=== PATIENT | male | born 1925 | race Caucasian/White ===

== ENCOUNTER 2017-05-13 14:00 | Outpatient (RCR) ==
[2016-04-30 10:09] VITALS: BMI 23.7
--- NOTE | 2017-04-16 17:07 | RS.OTDNOTE ---
Subjective Date of Note: 04/16/17 Visit #: 7 Date of Evaluation: 03/31/17 Payer Source: MEDICARE Date of Onset/Injury/Change in Status: 03/17/17 Surgery Performed?: No Treatment Diagnosis: Left Rotator cuff tear, contusion to Left shoulder Treatment Side (optional): Left *Precautions: AT risk for falls. Prior Level of Function.....Patient was independent with: ADL's, Self Care, Work /Vocation, Caregiving, Ambulation/Mobility, Community Integration/Access History of Condition/Mechanism of Injury: Pt reported that he was in the kitchen and had cooked some pasta. Pt had picked up the boiling fuentes of hot water and cooked pasta and was trying to turn when he fell into the refrigerator and the grainer machine. Pt had difficulty getting up out of the floor. Level of Function: Pt is limited in LUE AROM, and strength. Functional Limitations: Sleep, Self Care, ADL's, Reaching, Pushing, Pulling, Lifting, Carrying Current Complaints/Gains: Painful to reach with LUE. Pt reports it is better. Pain Assessment - Pain Description Pain Description: Aching Pain Location: LUE shoulder, posterior deltoid Pain Description: aches, sharp when he reaches Current Pain Intensity: 0 at rest. Modalities - Treatment Modality: Electrical Stim Unattended Parameters/Method Applied: 100 on ch1 and ch2 115, High Volt. Treatment Area: LUE anterior deltoid with crossed over X Patient Position: Supine Comments:: Pt completing AROM and exercises with E-stim to decrease patient's pain. - Hot Pack/Cryotherapy Treatment: Cryotherapy Interventions - Exercise/Activities Exercise/Activities/Manual Therapy: Isometric exercises, 10/2 with hold x 5 secs. Extended PROM to A/AROM L UE in supine position. 1# say bar 10/2, shoulder flexion/abduction/extension Pt tolerated 10 minutes of the overhead pulleys. Ball flexion with BUE x 10 reps. Mass nutrition services manager 8# and 10# x 20 reps in BUE. HOME EXERCISE PROGRAM: Written document of Isometric exercises. - Objective Findings Objective Findings:: Pt has limited AROM of LUE and weakness. - Charges Total Direct Minutes: 49 Total Treatment Time: 60 Procedures billed for this date of service:: EX x 2, Estim, CP Assessment Assessment: Pt is improving in strength and his overall pain is decreasing. Pt is now able to tie his shoes. Pt is able to button his shirt. Problems/Comments: Pain with reaching with LUE. Patient demonstrates compliance with HEP?: Yes Short Term Goals Goal #1: Pt to increase LUE shoulder abduction to 75 deg. Goal to be met by: 04/14/17 Progress towards goal: Progressing Goal #2: Pt to be independent with Home exercises. Goal to be met by: 04/14/17 Progress towards goal: Partially Met Goal #3: Pt to increase LUE shoulder flexion to 70 deg. Goal to be met by: 04/14/17 Progress towards goal: Partially Met Goal #4: Pt to increase his strength to 3-/5 in LUE. Goal to be met by: 04/14/17 Progress towards goal: Partially Met Nursing Home Goals Goal #1: Pt to increase LUE shoulder abduction to 90 deg. Goal to be met by: 04/28/17 Progress towards goal: Progressing Goal #2: Pt to increase independence of self care management to Independent. Goal to be met by: 04/28/17 Progress towards goal: Progressing Goal #3: Pt to increase LUE shoulder flexion to 90 deg. Goal to be met by: 04/28/17 Progress towards goal: Progressing Goal #4: Pt to increase his strength to 4/5/5 in LUE. Goal to be met by: 04/28/17 Progress towards goal: Progressing Plan PLAN OF CARE EXPIRES ON:: 04/24/17 ORDER # VISITS AND/OR THROUGH DATE: 3x wk x 3 weeks PLAN: Continue Plan of Care Frequency: 2 X week Duration: 1 week
--- NOTE | 2017-04-17 10:08 | RS.OPPTDN ---
Subjective Date of Note: 04/16/17 Visit #: 5 Date of Evaluation: 04/03/17 Payer Source: MEDICARE Treatment Diagnosis: fall and gait difficulty Current Subjective/complaints:: pt states he can tell he is getting stronger. *Precautions: AT risk for falls. Pain Assessment - Pain Description Pain Location: L shld Current Pain Intensity: 0 at rest Balance System Training - Balance Training Comments pt with improved dyn stand balance with no LOB with amb in dept without cane. Interventions - Exercise/Activities/Manual Therapy Exercises/Activities: pt received stretching to B heel cords as well as hamstrings, pt rode bike x 8 mins pt performed QS, SAQ, hip flex in hook lying with 1 1/2#, hip abd in hook lying with red tband, ball squeezes x 2 sets of 10 reps, pt also performed forward lunges x 10 reps with CGA Total minutes of Exercise: 40 Manual Therapy: n/a Total minutes of Manual Therapy: n/a HOME EXERCISE PROGRAM: pt reports he has been compliant with HEP 2x a day - Charges Total Direct Minutes: 40 Total Treatment Time: 40 Procedures billed for this date of service:: ex3 Assessment: pt is progressing with strength and balance, gait safety has improved as noted by gait in/out of dept. Patient Education: Home Exercise Program, Activity Modification, Education of Plan of Care Patient demonstrates compliance with HEP?: Yes Short Term Goals Goal #1: transfer sup to/from sit independently Goal to be met by: 04/17/17 Progress towards Goal:: Met Goal #2: pt demonstrate improved dyn stand balance with tinetti score 19/28 Goal to be met by: 04/17/17 Progress towards Goal:: Progressing Goal #3: pt amb with cane in dept with improved heel strike and posture with no LOB Goal to be met by: 04/17/17 Progress towards Goal:: Met [facility] Goals Goal #1: pt with improved strength BLE 4 to 4+/5 Goal to be met by: 05/08/17 Progress towards goal: Progressing Goal #2: pt independent with HEP to maintain functional gains after dc Goal to be met by: 05/08/17 Progress towards goal: Progressing Goal #3: pt with improved dyn stand balance as noted by tinetti score of 22/28 Goal to be met by: 05/08/17 Progress towards goal: Progressing Goal #4: pt amb commuity distances with cane with no LOB and improved posture. Goal to be met by: 05/08/17 Progress towards goal: Progressing Plan PLAN OF CARE EXPIRES ON:: 05/08/17 ORDER # VISITS AND/OR THROUGH DATE: 05/08/17 PLAN: Continue Plan of Care
--- NOTE | 2017-04-21 15:17 | RS.OPPTDN ---
Subjective Date of Note: 04/21/17 Visit #: 6 Date of Evaluation: 04/03/17 Payer Source: MEDICARE Treatment Diagnosis: fall and gait difficulty Current Subjective/complaints:: Patient says he is doing well. He denies any LOB or falls. *Precautions: AT risk for falls. Pain Assessment - Pain Description Pain Location: L shld Current Pain Intensity: 0 at rest Interventions - Exercise/Activities/Manual Therapy Exercises/Activities: pt received stretching to B heel cords as well as hamstrings, pt rode bike x 8 mins pt performed QS, SAQ, hip flex in hook lying with 1 1/2#, hip abd in hook lying with red tband, ball squeezes x 2 sets of 10 reps, pt also performed forward lunges x 10 reps with CGA Total minutes of Exercise: 38 Manual Therapy: n/a HOME EXERCISE PROGRAM: pt reports he has been compliant with HEP 2x a day - Charges Total Direct Minutes: 38 Total Treatment Time: 38 Procedures billed for this date of service:: ex3 Assessment: Patient progressing well with all therex and performing HEP. Currently maintains good bal with amb without cane short distances. Utilizes SC in hallway and community distances without dizziness or LOB. Maintains no falls at this point. Patient Education: Education of diagnosis, Home Exercise Program Patient demonstrates compliance with HEP?: Yes Short Term Goals Goal #1: transfer sup to/from sit independently Goal to be met by: 04/17/17 Progress towards Goal:: Met Goal #2: pt demonstrate improved dyn stand balance with tinetti score 19/28 Goal to be met by: 04/17/17 Progress towards Goal:: Progressing Goal #3: pt amb with cane in dept with improved heel strike and posture with no LOB Goal to be met by: 04/17/17 Progress towards Goal:: Met [facility] Goals Goal #1: pt with improved strength BLE 4 to 4+/5 Goal to be met by: 05/08/17 Progress towards goal: Progressing Goal #2: pt independent with HEP to maintain functional gains after dc Goal to be met by: 05/08/17 Progress towards goal: Progressing Goal #3: pt with improved dyn stand balance as noted by tinetti score of 22/28 Goal to be met by: 05/08/17 Progress towards goal: Progressing Goal #4: pt amb commuity distances with cane with no LOB and improved posture. Goal to be met by: 05/08/17 Progress towards goal: Progressing Plan PLAN OF CARE EXPIRES ON:: 05/08/17 ORDER # VISITS AND/OR THROUGH DATE: 05/08/17 PLAN: Continue to progress trunk and LE strengthening to improve bal and HS flexibility.
--- NOTE | 2017-04-22 14:17 | RS.OTDNOTE ---
Subjective Date of Note: 04/21/17 Visit #: 8 Date of Evaluation: 03/31/17 Payer Source: MEDICARE Date of Onset/Injury/Change in Status: 03/17/17 Surgery Performed?: No Treatment Diagnosis: Left Rotator cuff tear, contusion to Left shoulder Treatment Side (optional): Left *Precautions: AT risk for falls. Prior Level of Function.....Patient was independent with: ADL's, Self Care, Work /Vocation, Caregiving, Ambulation/Mobility, Community Integration/Access History of Condition/Mechanism of Injury: Pt reported that he was in the kitchen and had cooked some pasta. Pt had picked up the boiling fuentes of hot water and cooked pasta and was trying to turn when he fell into the refrigerator and the track template maker. Pt had difficulty getting up out of the floor. Level of Function: Pt is limited in LUE AROM, and strength. Functional Limitations: Sleep, Self Care, ADL's, Reaching, Pushing, Pulling, Lifting, Carrying Current Complaints/Gains: Pt states he is able to do more things now and is pleased with progress of UE. Pt and son states pt returns to [facility] on Thursday and are hoping to continue with therapy. Pain Assessment - Pain Description Pain Description: Tightness, Dull, Aching Pain Location: LUE shoulder, posterior deltoid Pain Description: aches, sharp when he reaches Current Pain Intensity: 1 Worst Pain Intensity: 5 Modalities - Treatment Modality: Electrical Stim Attended Parameters/Method Applied: Hi-volt to pt tolerance during PROM-A/AROM Treatment Area: shoulder Patient Position: Supine - Hot Pack/Cryotherapy Treatment: Cryotherapy (CP x 20 mins) Interventions - Exercise/Activities Exercise/Activities/Manual Therapy: Isometric exercises, 10/2 with hold x 5 secs. Extended PROM to A/AROM L UE in supine position. 1# say bar 10/2, shoulder flexion/abduction/extension. Hold-relax and AROM performed with 45* angle from 120-150*. Pt tolerated 3+ minutes of the overhead pulleys. Ball flexion with BUE x 10 reps. Mass storm sash maker 8# and 10# x 20 reps in BUE. HOME EXERCISE PROGRAM: Written document of Isometric exercises. - Objective Findings Objective Findings:: Pt has limited AROM of LUE and weakness. - Charges Total Direct Minutes: 58 Total Treatment Time: 58 Procedures billed for this date of service:: CP EX2 ESTIM Assessment Patient Education: Education of diagnosis, Body/Joint mechanics, Home Exercise Program, Home Safety, Activity Modification, Education of Plan of Care Patient demonstrates compliance with HEP?: Yes Short Term Goals Goal #1: Pt to increase LUE shoulder abduction to 75 deg. Goal to be met by: 04/14/17 Progress towards goal: Progressing Comments: PROM Goal #2: Pt to be independent with Home exercises. Goal to be met by: 04/14/17 Progress towards goal: Met Comments: Shimon and isometric Goal #3: Pt to increase LUE shoulder flexion to 70 deg. Goal to be met by: 04/14/17 Progress towards goal: Met Goal #4: Pt to increase his strength to 3-/5 in LUE. Goal to be met by: 04/14/17 Progress towards goal: Partially Met Associate Professor Of Chemistry Goals Goal #1: Pt to increase LUE shoulder abduction to 90 deg. Goal to be met by: 04/28/17 Progress towards goal: Progressing Goal #2: Pt to increase independence of self care management to Independent. Goal to be met by: 04/28/17 Progress towards goal: Progressing Goal #3: Pt to increase LUE shoulder flexion to 90 deg. Goal to be met by: 04/28/17 Progress towards goal: Progressing Goal #4: Pt to increase his strength to 4/5/5 in LUE. Goal to be met by: 04/28/17 Progress towards goal: Progressing Plan PLAN OF CARE EXPIRES ON:: 04/28/17 ORDER # VISITS AND/OR THROUGH DATE: 3x wk x 3 weeks PLAN: Pt to be seen x 1 add'l tx this wk. Pt returns to 04/27/17 Frequency: one tx left Duration: 1 week
--- NOTE | 2017-04-24 08:53 | RS.OPPTDN ---
Subjective Date of Note: 04/23/17 Visit #: 7 Date of Evaluation: 04/03/17 Payer Source: MEDICARE Treatment Diagnosis: fall and gait difficulty Current Subjective/complaints:: Patient says he is doing well. He reports some stiffness to the hips, but admits he is feeling increased strength to his legs and denies having any falls or stumbling. *Precautions: AT risk for falls. Pain Assessment - Pain Description Pain Location: L shld Current Pain Intensity: 0 at rest Interventions - Exercise/Activities/Manual Therapy Exercises/Activities: pt received stretching to B heel cords as well as hamstrings, lower trunk rotation (short range). pt performed QS, SAQ 3# ea, hip flex in hook lying with 1 1/2#, hip abd in hook lying with red tband, ball squeezes x 2 sets of 10 reps, bridging. Patient stands at railing for hip abd, side stepping, heel raises, minisquats x 10 reps. Total minutes of Exercise: 38 Manual Therapy: n/a HOME EXERCISE PROGRAM: pt reports he has been compliant with HEP 2x a day - Charges Total Direct Minutes: 38 Total Treatment Time: 38 Procedures billed for this date of service:: ex3 Assessment: Patient has had no falls, maintains no LOB in the department. He ambulates short distances and in home independently. He requires short amount of time when transferring from sit to stand and ambulation so that he may avoid any possible dizziness. Discussed him returning to his MD on Thursday, April 27 and then attending his final PT session with reassessing Tinetti test. Patient Education: Home Exercise Program, Home Safety Patient demonstrates compliance with HEP?: Yes Short Term Goals Goal #1: transfer sup to/from sit independently Goal to be met by: 04/17/17 Progress towards Goal:: Met Goal #2: pt demonstrate improved dyn stand balance with tinetti score 19/28 Goal to be met by: 04/17/17 Progress towards Goal:: Progressing Comments:: assess next session Goal #3: pt amb with cane in dept with improved heel strike and posture with no LOB Goal to be met by: 04/17/17 Progress towards Goal:: Met Director Call Goals Goal #1: pt with improved strength BLE 4 to 4+/5 Goal to be met by: 05/08/17 Progress towards goal: Progressing Goal #2: pt independent with HEP to maintain functional gains after dc Goal to be met by: 05/08/17 Progress towards goal: Progressing Goal #3: pt with improved dyn stand balance as noted by tinetti score of Goal to be met by: 05/08/17 Progress towards goal: Progressing Goal #4: pt amb commuity distances with cane with no LOB and improved posture. Goal to be met by: 05/08/17 Progress towards goal: Progressing Plan PLAN OF CARE EXPIRES ON:: 05/08/17 ORDER # VISITS AND/OR THROUGH DATE: 05/08/17 PLAN: Progress to one more session next week based on order. We will reassess Tinetti and Bal score.
--- NOTE | 2017-04-27 15:36 | RS.OPPTDN ---
Subjective Date of Note: 04/27/17 Visit #: 8 Date of Evaluation: 04/03/17 Payer Source: MEDICARE Treatment Diagnosis: fall and gait difficulty Current Subjective/complaints:: Patient says he is performing all HEP without difficulty. He says his legs are stronger and feels he has improved. 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 He says he does have an order to continue for his L shoulder, but no follow up scheduled with Dr. Lund for LE's. *Precautions: AT risk for falls. Pain Assessment - Pain Description Pain Location: L shld Current Pain Intensity: 0 at rest Interventions - Exercise/Activities/Manual Therapy Exercises/Activities: pt received stretching to B heel cords as well as hamstrings, lower trunk rotation (short range). pt performed QS, SAQ increased to 4# ea, hip flex in hook lying with 3#, hip abd in hook lying with green tband , ball squeezes x 2 sets of 10 reps, bridging. DF with blue tband, all 2x10. Tinetti's Assessment performed to compare to eval. Total minutes of Exercise: 43 Manual Therapy: n/a HOME EXERCISE PROGRAM: pt reports he has been compliant with HEP 2x a day - Objective Findings Observations,measurements,etc.: Tinetti: (Eval was ) - Charges Total Direct Minutes: 43 Total Treatment Time: 43 Procedures billed for this date of service:: ex3 Assessment: Patient has progressed with increased strength to the LE's and bal. He demo improved Tinetti's primarily with standing bal, performing continuous and steady steps 360 degrees and resisted nudging. He shows deficit mostly related to having an AD (he does not rely on it at home, only community distances). Patient Education: Body/Joint mechanics, Home Exercise Program, Home Safety Patient demonstrates compliance with HEP?: Yes Short Term Goals Goal #1: transfer sup to/from sit independently Goal to be met by: 04/17/17 Progress towards Goal:: Met Goal #2: pt demonstrate improved dyn stand balance with tinetti score Goal to be met by: 04/17/17 Progress towards Goal:: Met Comments:: Goal #3: pt amb with cane in dept with improved heel strike and posture with no LOB Goal to be met by: 04/17/17 Progress towards Goal:: Met Nursing Home Goals Goal #1: pt with improved strength BLE 4 to 4+/5 Goal to be met by: 05/08/17 Progress towards goal: Met Goal #2: pt independent with HEP to maintain functional gains after dc Goal to be met by: 05/08/17 Progress towards goal: Met Goal #3: pt with improved dyn stand balance as noted by tinetti score of Goal to be met by: 05/08/17 Progress towards goal: Progressing Comments: Goal #4: pt amb commuity distances with cane with no LOB and improved posture. Goal to be met by: 05/08/17 Progress towards goal: Met Comments: currently no LOB or falls. Plan PLAN OF CARE EXPIRES ON:: 05/08/17 ORDER # VISITS AND/OR THROUGH DATE: 05/08/17 PLAN: Patient has completed POC, met nearly all goals, and independent with HEP. He has no scheduled follow up with MD, but feels he is able to discontinue PT. Plan for Discharge.
--- NOTE | 2017-04-28 08:19 | RS.OTDNOTE ---
Subjective Date of Note: 04/23/17 Visit #: 9 Date of Evaluation: 03/31/17 Payer Source: MEDICARE Date of Onset/Injury/Change in Status: 03/17/17 Surgery Performed?: No Treatment Diagnosis: Left Rotator cuff tear, contusion to Left shoulder Treatment Side (optional): Left *Precautions: AT risk for falls. Prior Level of Function.....Patient was independent with: ADL's, Self Care, Work /Vocation, Caregiving, Ambulation/Mobility, Community Integration/Access History of Condition/Mechanism of Injury: Pt reported that he was in the kitchen and had cooked some pasta. Pt had picked up the boiling fuentes of hot water and cooked pasta and was trying to turn when he fell into the refrigerator and the habilitation assistant. Pt had difficulty getting up out of the floor. Level of Function: Pt is limited in LUE AROM, and strength. Functional Limitations: Sleep, Self Care, ADL's, Reaching, Pushing, Pulling, Lifting, Carrying Current Complaints/Gains: Pt continues stating he is making progress and able to do more, tie shoes and addison/doff shirts with less pain. Pain Assessment - Pain Description Pain Description: Tightness, Dull, Aching Pain Location: LUE shoulder, posterior deltoid Pain Description: aches, sharp when he reaches Current Pain Intensity: 0-1 Worst Pain Intensity: 5-6 Modalities - Treatment Modality: Ultrasound Parameters/Method Applied: 1.5w/cm2 x 10 mins Treatment Area: anterior/posterior shoulder Patient Position: Sitting - Hot Pack/Cryotherapy Treatment: Cryotherapy (following TE x 10+ mins) Interventions - Exercise/Activities Exercise/Activities/Manual Therapy: Isometric exercises, 10/2 with hold x 5 secs. Extended PROM to A/AROM L UE in supine position. 1# say bar 10/2, shoulder flexion/abduction/extension. Hold-relax and AROM performed with 45* angle from 120-150*. Pt tolerated 3+ minutes of the overhead pulleys. Ball flexion with BUE x 10 reps. Mass division commander 8# and 10# x 20 reps in BUE. HOME EXERCISE PROGRAM: Written document of Isometric exercises. - Objective Findings Objective Findings:: Pt has limited AROM of LUE and weakness. - Charges Total Direct Minutes: 48 Total Treatment Time: 58 Procedures billed for this date of service:: CP US EX2 Assessment Patient Education: Education of diagnosis, Body/Joint mechanics, Home Exercise Program, Home Safety, Activity Modification, Education of Plan of Care Patient demonstrates compliance with HEP?: Yes Short Term Goals Goal #1: Pt to increase LUE shoulder abduction to 75 deg. Goal to be met by: 04/14/17 Progress towards goal: Progressing Goal #2: Pt to be independent with Home exercises. Goal to be met by: 04/14/17 Progress towards goal: Met Comments: written instructions Goal #3: Pt to increase LUE shoulder flexion to 70 deg. Goal to be met by: 04/14/17 Progress towards goal: Met Goal #4: Pt to increase his strength to 3-/5 in LUE. Goal to be met by: 04/14/17 Progress towards goal: Partially Met Hat Cutter Goals Goal #1: Pt to increase LUE shoulder abduction to 90 deg. Goal to be met by: 04/28/17 Progress towards goal: Progressing Goal #2: Pt to increase independence of self care management to Independent. Goal to be met by: 04/28/17 Progress towards goal: Progressing Goal #3: Pt to increase LUE shoulder flexion to 90 deg. Goal to be met by: 04/28/17 Progress towards goal: Progressing Goal #4: Pt to increase his strength to 4/5/5 in LUE. Goal to be met by: 04/28/17 Progress towards goal: Progressing Plan PLAN OF CARE EXPIRES ON:: 04/28/17 ORDER # VISITS AND/OR THROUGH DATE: 04/28/17 PLAN: Pt returns to MD for follow-up appointment on Thursday04/27/17. Pt and son instructed for cont orders from MD if pt is to cont with current OT POC. Pt cont to demo slow steady progress with ROM and pain level during all ADL activity. OTR to re-assess pt for 10th visit/cont of orders if pt to continue OT tx. Frequency: Awaiting MD orders Duration: Awaiting MD orders
--- NOTE | 2017-04-30 16:33 | RS.OTPN ---
Subjective Date of Note: 04/30/17 Visit #: 10 Date of Evaluation: 03/31/17 Payer Source: MEDICARE Date of Onset/Injury/Change in Status: 03/17/17 Surgery Performed?: No Treatment Diagnosis: Left Rotator cuff tear, contusion to Left shoulder Treatment Side (optional): Left *Precautions: AT risk for falls. Prior Level of Function.....Patient was independent with: ADL's, Self Care, Work /Vocation, Caregiving, Ambulation/Mobility, Community Integration/Access History of Condition/Mechanism of Injury: Pt reported that he was in the kitchen and had cooked some pasta. Pt had picked up the boiling fuentes of hot water and cooked pasta and was trying to turn when he fell into the refrigerator and the manager consumer. Pt had difficulty getting up out of the floor. Level of Function: Pt is limited in LUE AROM, and strength. Functional Limitations: Sleep, Self Care, ADL's, Reaching, Pushing, Pulling, Lifting, Carrying Current Complaints/Gains: Pt complains of pain with LUE shoulder flexion, LUE chest pushouts, and LUE shoulder abduction. Pt has gained functional use of the LUE since initial evaluation. Pt can tie his shoes, put on his clothes, button his shirts, drive his car. Pain Assessment - Pain Description Pain Description: Tightness, Dull, Aching Pain Location: LUE shoulder, posterior deltoid Pain Description: aches, sharp when he reaches Current Pain Intensity: 0 Worst Pain Intensity: 6 Other comments regarding pain:: complains of pain with LUE shoulder flexion, abduction, and pushout. Functional Outcome Measures UE Functional Index: 30 - G Codes & Severity Modifier G Codes: Initial G code was CL. Current G code has improved to CJ. Goal is CI Source of G Code score: Carry, Moving, and handling. Observation - Observation Posture: Forward Head Handedness: Right Shoulder ROM: Right WFL's Shoulder Muscle Strength: Right WFL's - Left Shoulder ROM Left Shoulder Flexion: 45 (supine position) Left Shoulder Extension: 60 (sitting) Left Shoulder Abduction: 55 (standing) Left Shoulder Horizontal Abduction: 10 (supine) Left Shoulder Internal Rotation: 30 Left Shoulder External Rotation: 25 Left Shoulder ROM Limitations: Muscle Weakness, Pain - Left Shoulder Strength Left Shoulder Flexion: 3- Fair- Left Shoulder Extension: 4 Good Left Shoulder Abduction: 3- Fair- Left Shoulder Adduction: 3+ Fair+ Left Shoulder External Rotation: 2+ Poor+ Left Shoulder Internal Rotation: 3+ Fair+ - Right Shoulder Strength Right Shoulder Flexion: 4 Good Right Shoulder Extension: 4 Good Right Shoulder Abduction: 4 Good Right Shoulder Adduction: 4 Good Right Shoulder External Rotation: 4 Good Right Shoulder Internal Rotation: 4 Good - Special Tests Shoulder Drop Arm Test: Positive Left Elbow ROM: Bilaterally WFL's Elbow Muscle Strength: Bilaterally WFL's - Left Elbow Strength Left Elbow Extension: 4- Good- Left Elbow Flexion: 4- Good- Left Forearm Pronation: 4- Good- Left Forearm Supination: 4- Good- - Right Elbow Strength Right Elbow Extension: 4+ Good + Right Elbow Flexion: 4+ Good + Right Forearm Pronation: 4+ Good + Right Forearm Supination: 4+ Good + Wrist ROM: Bilaterally WFL's Wrist Muscle Strength: Bilaterally WFL's - Pre Billing Specialist Strength Left Pre Billing Specialist Strength: 59 Right Pre Billing Specialist Strength: 61 Palpation Palpation Findings: Tenderness Sensation Right Upper Extremity: Intact/Normal Right Lower Extremity: Intact/Normal Modalities - Treatment Modality: Electrical Stim Unattended Parameters/Method Applied: high volt to decrease pain. Treatment Area: Left shoulder Patient Position: Supine - Hot Pack/Cryotherapy Treatment: Hot Pack, Cryotherapy Interventions - Exercise/Activities Exercise/Activities/Manual Therapy: Isometric exercises, 10/2 with hold x 5 secs. Extended PROM to A/AROM L UE in supine position. 1# say bar 10/2, shoulder flexion/abduction/extension. Hold-relax and AROM performed with 45* angle from 120-150*. Pt tolerated 3+ minutes of the overhead pulleys. Ball flexion with BUE x 10 reps. HOME EXERCISE PROGRAM: Written document of Isometric exercises. - Objective Findings Objective Findings:: Pt has limited AROM of LUE and weakness. - Charges Total Direct Minutes: 20 Total Treatment Time: 20 Procedures billed for this date of service:: Exercises x 1 Assessment Assessment: Pt has made good progress toward his OT goals. Pt has decreased his impairment more than 50%. Pt continues with weakness, limited AROM of LUE, and decreased function of LUE. Patient Education: Education of diagnosis, Home Exercise Program, Education of Plan of Care Rehab Potential: Good Problems/Comments: decreased LUE shoulder flexion, abduction, and reaching. Short Term Goals Goal #1: Pt to increase LUE shoulder abduction to 75 deg. Goal to be met by: 05/14/17 Progress towards goal: Progressing Goal #2: Pt to increase Ext. Rot. to 60 deg. Goal to be met by: 05/14/17 Goal #3: Pt to increase LUE shoulder flexion to 100 deg. Goal to be met by: 05/14/17 Progress towards goal: Met Goal #4: Pt to increase his strength to 3-/5 in LUE. Goal to be met by: 05/14/17 Progress towards goal: Partially Met Shelter Goals Goal #1: Pt to increase LUE shoulder abduction to 90 deg. Goal to be met by: 06/18/17 Progress towards goal: Progressing Goal #2: Pt to increase independence of self care management to Independent. Goal to be met by: 06/18/17 Progress towards goal: Progressing Goal #3: Pt to increase LUE shoulder flexion to 90 deg. Goal to be met by: 06/18/17 Progress towards goal: Progressing Goal #4: Pt to increase his strength to 4/5 in LUE. Goal to be met by: 06/18/17 Progress towards goal: Progressing Plan PLAN OF CARE EXPIRES ON:: 06/18/17 ORDER # VISITS AND/OR THROUGH DATE: 06/18/17 PLAN: OT to provide Estim with Progressive Resistive Exercises to increase strength and decrease pain of LUE. OT to provide PROM, AAROM, and AROM to LUE. Frequency: 2 X week Duration: 6 weeks
--- NOTE | 2017-05-01 10:48 | RS.OTDNOTE ---
Subjective Date of Note: 04/30/17 Visit #: 10 Date of Evaluation: 03/31/17 Payer Source: MEDICARE Date of Onset/Injury/Change in Status: 03/17/17 Surgery Performed?: No Treatment Diagnosis: Left Rotator cuff tear, contusion to Left shoulder Treatment Side (optional): Left *Precautions: AT risk for falls. Prior Level of Function.....Patient was independent with: ADL's, Self Care, Work /Vocation, Caregiving, Ambulation/Mobility, Community Integration/Access History of Condition/Mechanism of Injury: Pt reported that he was in the kitchen and had cooked some pasta. Pt had picked up the boiling fuentes of hot water and cooked pasta and was trying to turn when he fell into the refrigerator and the environmental adviser. Pt had difficulty getting up out of the floor. Level of Function: Pt is limited in LUE AROM, and strength. Functional Limitations: Sleep, Self Care, ADL's, Reaching, Pushing, Pulling, Lifting, Carrying Current Complaints/Gains: Pt pleased with progress and is happy to continue with UE therapy. Pt states good compliance with performing HEP. Pain Assessment - Pain Description Pain Description: Tightness, Dull, Aching Pain Location: LUE shoulder, posterior deltoid Pain Description: aches, sharp when he reaches Current Pain Intensity: 0-1 Worst Pain Intensity: 4-5 Modalities - Treatment Modality: Electrical Stim Unattended Parameters/Method Applied: Hi-volt to pt tolerance with HP applied and PROM-A/ AROM in supine position x 30 mins. Treatment Area: cross current shoulder Patient Position: Supine - Hot Pack/Cryotherapy Treatment: Hot Pack, Cryotherapy Comments:: HP x 30 mins during estim application. CP x 10 mins following tx Interventions - Exercise/Activities Exercise/Activities/Manual Therapy: Isometric exercises, 10/2 with hold x 5 secs. Extended PROM to A/AROM L UE in supine position. 1# say bar 10/2, shoulder flexion/abduction/extension. Hold-relax and AROM performed with 45* angle from 120-150*. Pt tolerated 3+ minutes of the overhead pulleys. Ball flexion with BUE x 10 reps. HOME EXERCISE PROGRAM: Written document of Isometric exercises. - Objective Findings Objective Findings:: Pt has limited AROM of LUE and weakness. - Charges Total Direct Minutes: 60 Total Treatment Time: 75 Procedures billed for this date of service:: HP ESTIM EX2 Assessment Patient Education: Education of diagnosis, Body/Joint mechanics, Home Exercise Program, Home Safety, Activity Modification, Education of Plan of Care Patient demonstrates compliance with HEP?: Yes Short Term Goals Goal #1: Pt to increase LUE shoulder abduction to 75 deg. Goal to be met by: 04/14/17 Progress towards goal: Progressing Goal #2: Pt to be independent with Home exercises. Goal to be met by: 04/14/17 Progress towards goal: Met Goal #3: Pt to increase LUE shoulder flexion to 70 deg. Goal to be met by: 04/14/17 Progress towards goal: Met Goal #4: Pt to increase his strength to 3-/5 in LUE. Goal to be met by: 04/14/17 Progress towards goal: Partially Met Snf Goals Goal #1: Pt to increase LUE shoulder abduction to 90 deg. Goal to be met by: 04/28/17 Progress towards goal: Progressing Goal #2: Pt to increase independence of self care management to Independent. Goal to be met by: 04/28/17 Progress towards goal: Progressing Goal #3: Pt to increase LUE shoulder flexion to 90 deg. Goal to be met by: 04/28/17 Progress towards goal: Progressing Goal #4: Pt to increase his strength to 4/5/5 in LUE. Goal to be met by: 04/28/17 Progress towards goal: Progressing Plan PLAN OF CARE EXPIRES ON:: 04/28/17 ORDER # VISITS AND/OR THROUGH DATE: 04/28/17 PLAN: OTR here for 10th visit assessment. Pt demo progress and continuation orders for skilled OT. OTR upgrading goals and medicare dates. Frequency: 2 X week Duration: 4 weeks
--- NOTE | 2017-05-01 16:00 | RS.OPPTDC ---
Date of Discharge: 04/27/17 Date of Evaluation: 04/03/17 Number of Visits: 8 Treatment Diagnosis: fall and gait difficulty Current Level of Function: pt with increased hamstring length BLE. Tinetti score improved by 4 points pt improved with LE strength 4- to 4+/5 Current Complaints/Gains: pt denies falls or LOB since beginning PT. pt states he has had improved strength, flexibility in hips and knees. pt only uses cane for community distances. pt is compliant with HEP Functional Outcome Measure Tinetti: 20 - G Codes & Severity Modifier G Codes & Modifier: mobility dc CJ. mobility goal CI Source of G Code score: tinetti balance scale General Range of Motion: WFL's except for L shld Muscle Strength: LE strength 4- to 4+/5 Interventions - Exercise/Activities/Manual Therapy Exercises/Activities: pt received stretching to B heel cords as well as hamstrings, lower trunk rotation (short range). pt performed QS, SAQ increased to 4# ea, hip flex in hook lying with 3#, hip abd in hook lying with green tband , ball squeezes x 2 sets of 10 reps, bridging. DF with blue tband, all 2x10. Tinetti's Assessment performed to compare to eval. Manual Therapy: n/a HOME EXERCISE PROGRAM: pt reports he has been compliant with HEP 2x a day - Charges Total Direct Minutes: n/a Total Treatment Time: n/a Procedures billed for this date of service:: n/a Assessment Assessment: pt has progressed with balance and transfers and gait. pt has met STG 1-3, and LTG 1, 2, and 4. Patient Education: Education of diagnosis, Home Exercise Program, Home Safety, Activity Modification, Education of Plan of Care Rehab Potential: Good Short Term Goals Goal #1: transfer sup to/from sit independently Goal to be met by: 04/17/17 Progress towards Goal:: Met Goal #2: pt demonstrate improved dyn stand balance with tinetti score 19/28 Goal to be met by: 04/17/17 Progress towards Goal:: Met Goal #3: pt amb with cane in dept with improved heel strike and posture with no LOB Goal to be met by: 04/17/17 Progress towards Goal:: Met Mechanical Detailer Goals Goal #1: pt with improved strength BLE 4 to 4+/5 Goal to be met by: 05/08/17 Progress towards goal: Met Goal #2: pt independent with HEP to maintain functional gains after dc Goal to be met by: 05/08/17 Progress towards goal: Met Goal #3: pt with improved dyn stand balance as noted by tinetti score of 22/28 Goal to be met by: 05/08/17 Progress towards goal: Progressing Goal #4: pt amb commuity distances with cane with no LOB and improved posture. Goal to be met by: 05/08/17 Progress towards goal: Met Plan Comments: pt has met most goals.
--- NOTE | 2017-05-05 08:51 | RS.OTDNOTE ---
Subjective Date of Note: 05/04/17 Visit #: 11 Date of Evaluation: 03/31/17 Payer Source: MEDICARE Date of Onset/Injury/Change in Status: 03/17/17 Surgery Performed?: No Treatment Diagnosis: Left Rotator cuff tear, contusion to Left shoulder Treatment Side (optional): Left *Precautions: AT risk for falls. Prior Level of Function.....Patient was independent with: ADL's, Self Care, Work /Vocation, Caregiving, Ambulation/Mobility, Community Integration/Access History of Condition/Mechanism of Injury: Pt reported that he was in the kitchen and had cooked some pasta. Pt had picked up the boiling fuentes of hot water and cooked pasta and was trying to turn when he fell into the refrigerator and the gearcase assembler. Pt had difficulty getting up out of the floor. Level of Function: Pt is limited in LUE AROM, and strength. Functional Limitations: Sleep, Self Care, ADL's, Reaching, Pushing, Pulling, Lifting, Carrying Current Complaints/Gains: Pt continues making progress. States pain is "none or very little" Pain Assessment - Pain Description Pain Description: Tightness, Dull, Aching Pain Location: LUE shoulder, posterior deltoid Pain Description: aches, sharp when he reaches Modalities - Treatment Modality: Electrical Stim Unattended Parameters/Method Applied: Hi-volt to pt tolerance, 20 mins with HP Patient Position: Sitting - Hot Pack/Cryotherapy Treatment: Hot Pack, Cryotherapy Comments:: HP x 20 mins during estim. CP x 10+ mins following tx Interventions - Exercise/Activities Exercise/Activities/Manual Therapy: Isometric exercises, 10/2 with hold x 5 secs. Extended PROM to A/AROM L UE in supine position. 1# say bar 10/2, shoulder flexion/abduction/extension. Hold-relax and AROM performed with 45* angle from 120-. Red t-band RTC series ex. Pt tolerated 3+ minutes of the overhead pulleys. Ball flexion with BUE x 10 reps. HOME EXERCISE PROGRAM: Written document of Isometric exercises. - Objective Findings Objective Findings:: Pt has limited AROM of LUE and weakness. - Charges Total Direct Minutes: 35 Total Treatment Time: 65 Procedures billed for this date of service:: ESTIM CP EX2 Assessment Patient Education: Education of diagnosis, Body/Joint mechanics, Home Exercise Program, Home Safety, Activity Modification, Education of Plan of Care Patient demonstrates compliance with HEP?: Yes Short Term Goals Goal #1: Pt to increase LUE shoulder abduction to 75 deg. Goal to be met by: 04/14/17 Progress towards goal: Partially Met Goal #2: Pt to be independent with Home exercises. Goal to be met by: 04/14/17 Progress towards goal: Met Goal #3: Pt to increase LUE shoulder flexion to 70 deg. Goal to be met by: 04/14/17 Progress towards goal: Met Goal #4: Pt to increase his strength to 3-/5 in LUE. Goal to be met by: 04/14/17 Progress towards goal: Partially Met Dice Dealer Goals Goal #1: Pt to increase LUE shoulder abduction to 90 deg. Goal to be met by: 06/18/17 Progress towards goal: Progressing Goal #2: Pt to increase independence of self care management to Independent. Goal to be met by: 06/18/17 Progress towards goal: Progressing Goal #3: Pt to increase LUE shoulder flexion to 90 deg. Goal to be met by: 06/18/17 Progress towards goal: Progressing Goal #4: Pt to increase his strength to 4/5/5 in LUE. Goal to be met by: 06/18/17 Progress towards goal: Progressing Plan PLAN OF CARE EXPIRES ON:: 06/18/17 ORDER # VISITS AND/OR THROUGH DATE: 06/18/17 PLAN: OTR consulted with POC and dates for LTG. Pt with new orders for continuation of OT services. Frequency: 2 X week Duration: 6 weeks
--- NOTE | 2017-05-11 08:55 | RS.OTDNOTE ---
Subjective Date of Note: 05/06/17 Visit #: 12 Date of Evaluation: 03/31/17 Payer Source: MEDICARE Date of Onset/Injury/Change in Status: 03/17/17 Surgery Performed?: No Treatment Diagnosis: Left Rotator cuff tear, contusion to Left shoulder Treatment Side (optional): Left *Precautions: AT risk for falls. Prior Level of Function.....Patient was independent with: ADL's, Self Care, Work /Vocation, Caregiving, Ambulation/Mobility, Community Integration/Access History of Condition/Mechanism of Injury: Pt reported that he was in the kitchen and had cooked some pasta. Pt had picked up the boiling fuentes of hot water and cooked pasta and was trying to turn when he fell into the refrigerator and the [employer] psychiatrist. Pt had difficulty getting up out of the floor. Level of Function: Pt is limited in LUE AROM, and strength. Functional Limitations: Sleep, Self Care, ADL's, Reaching, Pushing, Pulling, Lifting, Carrying Current Complaints/Gains: Pt continues demo and voicing good progress with UE movement Pain Assessment - Pain Description Pain Description: Tightness, Dull, Aching Pain Location: LUE shoulder, posterior deltoid Pain Description: aches, sharp when he reaches Modalities - Treatment Modality: Electrical Stim Unattended Parameters/Method Applied: Hi-volt to pt tolerance, cross-current with HP applied during Treatment Area: shoulder Patient Position: Sitting - Hot Pack/Cryotherapy Treatment: Hot Pack, Cryotherapy Comments:: HP x 20 mins during estim. CP x 10+ mins following TE Interventions - Exercise/Activities Exercise/Activities/Manual Therapy: Isometric exercises, 10/2 with hold x 5 secs. Extended PROM to A/AROM L UE in supine position. 1# say bar 10/2, shoulder flexion/abduction/extension. Hold-relax and AROM performed with 45* angle from 120-. Red t-band RTC series ex. Pt tolerated 3+ minutes of the overhead pulleys. Ball flexion with BUE x 10 reps. HOME EXERCISE PROGRAM: Written document of Isometric exercises. - Objective Findings Objective Findings:: Pt has limited AROM of LUE and weakness. - Charges Total Direct Minutes: 45 Total Treatment Time: 65 Procedures billed for this date of service:: CP ESTIM EX2 Assessment Patient Education: Education of diagnosis, Body/Joint mechanics, Home Exercise Program, Home Safety, Activity Modification, Education of Plan of Care Patient demonstrates compliance with HEP?: Yes Short Term Goals Goal #1: Pt to increase LUE shoulder abduction to 75 deg. Goal to be met by: 04/14/17 Progress towards goal: Partially Met Goal #2: Pt to be independent with Home exercises. Goal to be met by: 04/14/17 Progress towards goal: Met Goal #3: Pt to increase LUE shoulder flexion to 70 deg. Goal to be met by: 04/14/17 Progress towards goal: Met Goal #4: Pt to increase his strength to 3-/5 in LUE. Goal to be met by: 04/14/17 Progress towards goal: Partially Met Roof Mechanic Goals Goal #1: Pt to increase LUE shoulder abduction to 90 deg. Goal to be met by: 06/18/17 Progress towards goal: Progressing Goal #2: Pt to increase independence of self care management to Independent. Goal to be met by: 06/18/17 Progress towards goal: Partially Met Goal #3: Pt to increase LUE shoulder flexion to 90 deg. Goal to be met by: 06/18/17 Progress towards goal: Progressing Goal #4: Pt to increase his strength to 4/5/5 in LUE. Goal to be met by: 06/18/17 Progress towards goal: Progressing Plan PLAN OF CARE EXPIRES ON:: 06/18/17 ORDER # VISITS AND/OR THROUGH DATE: 06/18/17 PLAN: Cont current POC to max fx I, strength, and safety Frequency: 2 X week Duration: 4 weeks
--- NOTE | 2017-05-13 15:16 | RS.OTDNOTE ---
Subjective Date of Note: 05/11/17 Visit #: 13 Date of Evaluation: 03/31/17 Payer Source: MEDICARE Date of Onset/Injury/Change in Status: 03/17/17 Surgery Performed?: No Treatment Diagnosis: Left Rotator cuff tear, contusion to Left shoulder Treatment Side (optional): Left *Precautions: AT risk for falls. Prior Level of Function.....Patient was independent with: ADL's, Self Care, Work /Vocation, Caregiving, Ambulation/Mobility, Community Integration/Access History of Condition/Mechanism of Injury: Pt reported that he was in the kitchen and had cooked some pasta. Pt had picked up the boiling fuentes of hot water and cooked pasta and was trying to turn when he fell into the refrigerator and the public safety telecommunicator. Pt had difficulty getting up out of the floor. Level of Function: Pt is limited in LUE AROM, and strength. Functional Limitations: Sleep, Self Care, ADL's, Reaching, Pushing, Pulling, Lifting, Carrying Current Complaints/Gains: Pt continues demo steady progress with AROM of (L) UE. States good compliance with HEP and use of B UE brenda. Pain Assessment - Pain Description Pain Description: Tightness, Dull, Aching Pain Location: LUE shoulder, posterior deltoid Pain Description: aches, sharp when he reaches Modalities - Treatment Modality: Electrical Stim Unattended Parameters/Method Applied: Hi-volt x 20 mins to pt tolerance Treatment Area: cross current small pads to shoulder Patient Position: Sitting - Hot Pack/Cryotherapy Treatment: Hot Pack, Cryotherapy Interventions - Exercise/Activities Exercise/Activities/Manual Therapy: Isometric exercises, 10/2 with hold x 5 secs. Extended PROM to A/AROM L UE in supine position. 1# say bar 10/2, shoulder flexion/abduction/extension. Hold-relax and AROM performed with 45* angle from 120-. Red t-band RTC series ex. Pt tolerated 3+ minutes of the overhead pulleys. Ball flexion with BUE x 10 reps. HOME EXERCISE PROGRAM: Written document of Isometric exercises. - Objective Findings Objective Findings:: Pt has limited AROM of LUE and weakness. - Charges Total Direct Minutes: 35 Total Treatment Time: 55 Procedures billed for this date of service:: ESTIM CP EX2 Assessment Patient Education: Education of diagnosis, Body/Joint mechanics, Home Exercise Program, Home Safety, Activity Modification, Education of Plan of Care Patient demonstrates compliance with HEP?: Yes Short Term Goals Goal #1: Pt to increase LUE shoulder abduction to 75 deg. Goal to be met by: 04/14/17 Progress towards goal: Partially Met Goal #2: Pt to be independent with Home exercises. Goal to be met by: 04/14/17 Progress towards goal: Met Goal #3: Pt to increase LUE shoulder flexion to 70 deg. Goal to be met by: 04/14/17 Progress towards goal: Met Goal #4: Pt to increase his strength to 3-/5 in LUE. Goal to be met by: 04/14/17 Progress towards goal: Partially Met Jail Goals Goal #1: Pt to increase LUE shoulder abduction to 90 deg. Goal to be met by: 06/18/17 Progress towards goal: Progressing Goal #2: Pt to increase independence of self care management to Independent. Goal to be met by: 06/18/17 Progress towards goal: Partially Met Goal #3: Pt to increase LUE shoulder flexion to 90 deg. Goal to be met by: 06/18/17 Progress towards goal: Progressing Goal #4: Pt to increase his strength to 4/5/5 in LUE. Goal to be met by: 06/18/17 Progress towards goal: Progressing Plan PLAN OF CARE EXPIRES ON:: 06/18/17 ORDER # VISITS AND/OR THROUGH DATE: 06/18/17 PLAN: Cont per POC Frequency: 2 X week Duration: 3 weeks
== END 2017-05-14 ==
PROVIDERS: ATTEND Orthopaedic Surgery
DX: M19.012 Primary osteoarthritis, left shoulder (principal)

== ENCOUNTER 2017-05-25 13:00 | Outpatient (RCR) ==
[2016-04-30 10:09] VITALS: BMI 23.7
--- NOTE | 2017-05-18 14:26 | RS.OTDNOTE ---
Subjective Date of Note: 05/18/17 Visit #: 15 Date of Evaluation: 03/31/17 Payer Source: MEDICARE Date of Onset/Injury/Change in Status: 03/17/17 Surgery Performed?: No Treatment Diagnosis: Left Rotator cuff tear, contusion to Left shoulder Treatment Side (optional): Left *Precautions: AT risk for falls. Prior Level of Function.....Patient was independent with: ADL's, Self Care, Work /Vocation, Caregiving, Ambulation/Mobility, Community Integration/Access History of Condition/Mechanism of Injury: Pt reported that he was in the kitchen and had cooked some pasta. Pt had picked up the boiling fuentes of hot water and cooked pasta and was trying to turn when he fell into the refrigerator and the oral hygienist. Pt had difficulty getting up out of the floor. Level of Function: Pt is limited in LUE AROM, and strength. Functional Limitations: Sleep, Self Care, ADL's, Reaching, Pushing, Pulling, Lifting, Carrying Current Complaints/Gains: Pt cont stating good compliance with HEP. States he cont to see improvement with use of his UE. Pain Assessment - Pain Description Pain Location: LUE shoulder, posterior deltoid Pain Description: aches, sharp when he reaches Modalities - Treatment Modality: Electrical Stim Unattended Parameters/Method Applied: Hi-volt x 20 mins Treatment Area: shoulder Patient Position: Sitting - Hot Pack/Cryotherapy Treatment: Hot Pack, Cryotherapy Comments:: HP x 20 mins with CP x 10 mins following Interventions - Exercise/Activities Exercise/Activities/Manual Therapy: Isometric exercises, 10/2 with hold x 5 secs. Extended PROM to A/AROM L UE in supine position. 3# say bar 10/2, shoulder flexion/abduction/extension. Hold-relax and AROM performed with 45* angle from 120-. Red progressed to green t-band RTC series ex. Pt tolerated 3 + minutes of the overhead pulleys. Ball flexion with BUE x 10 reps. HOME EXERCISE PROGRAM: Written document of Isometric exercises. - Objective Findings Objective Findings:: AROM cont improving - Charges Timed Code Treatment Minutes: 35 Total Treatment Time: 55 Procedures billed for this date of service:: CP ESTIM EX2 Assessment Patient Education: Education of diagnosis, Body/Joint mechanics, Home Exercise Program, Home Safety, Activity Modification, Education of Plan of Care Patient demonstrates compliance with HEP?: Yes Short Term Goals Goal #1: Pt to increase LUE shoulder abduction to 75 deg. Goal to be met by: 04/14/17 Progress towards goal: Partially Met Goal #2: Pt to be independent with Home exercises. Goal to be met by: 04/14/17 Progress towards goal: Met Goal #3: Pt to increase LUE shoulder flexion to 70 deg. Goal to be met by: 04/14/17 Progress towards goal: Met Goal #4: Pt to increase his strength to 3-/5 in LUE. Goal to be met by: 04/14/17 Progress towards goal: Met Homicide Investigator Goals Goal #1: Pt to increase LUE shoulder abduction to 90 deg. Goal to be met by: 06/18/17 Progress towards goal: Progressing Goal #2: Pt to increase independence of self care management to Independent. Goal to be met by: 06/18/17 Progress towards goal: Partially Met Goal #3: Pt to increase LUE shoulder flexion to 90 deg. Goal to be met by: 06/18/17 Progress towards goal: Progressing Goal #4: Pt to increase his strength to 4/5/5 in LUE. Goal to be met by: 06/18/17 Progress towards goal: Progressing Plan PLAN OF CARE EXPIRES ON:: 06/18/17 ORDER # VISITS AND/OR THROUGH DATE: 06/18/17 PLAN: Cont per POC Frequency: 2 X week Duration: 4 weeks
--- NOTE | 2017-05-22 08:37 | RS.OTDNOTE ---
Subjective Date of Note: 05/21/17 Visit #: 16 Date of Evaluation: 03/31/17 Payer Source: MEDICARE Date of Onset/Injury/Change in Status: 03/17/17 Surgery Performed?: No Treatment Diagnosis: Left Rotator cuff tear, contusion to Left shoulder Treatment Side (optional): Left *Precautions: AT risk for falls. Prior Level of Function.....Patient was independent with: ADL's, Self Care, Work /Vocation, Caregiving, Ambulation/Mobility, Community Integration/Access History of Condition/Mechanism of Injury: Pt reported that he was in the kitchen and had cooked some pasta. Pt had picked up the boiling fuentes of hot water and cooked pasta and was trying to turn when he fell into the refrigerator and the manager investment. Pt had difficulty getting up out of the floor. Level of Function: Pt is limited in LUE AROM, and strength. Functional Limitations: Sleep, Self Care, ADL's, Reaching, Pushing, Pulling, Lifting, Carrying Current Complaints/Gains: Pt cont stating good compliance with HEP and states he cont to get better. Therapist and pt discuss DC planning with amount of progress and HEP progression. Pt agreeable to DC following one add'l wk of therapy. Pain Assessment - Pain Description Pain Location: LUE shoulder, posterior deltoid Pain Description: aches, sharp when he reaches Modalities - Hot Pack/Cryotherapy Treatment: Hot Pack (HP applied x 15 mins prior to TE) Interventions - Exercise/Activities Exercise/Activities/Manual Therapy: Isometric exercises, 10/2 with hold x 5 secs. Extended PROM to A/AROM L UE in supine position. 3# say bar 10/2, shoulder flexion/abduction/extension. Hold-relax and AROM performed with 45* angle from 120-. Red progressed to green t-band RTC series ex. Pt tolerated 3 + minutes of the overhead pulleys. Ball flexion with BUE x 10 reps along with ball circles. HOME EXERCISE PROGRAM: Written document of Isometric exercises. - Objective Findings Objective Findings:: AROM cont improving - Charges Timed Code Treatment Minutes: 55 Total Treatment Time: 55 Procedures billed for this date of service:: HP EX3 Assessment Patient Education: Education of diagnosis, Body/Joint mechanics, Home Exercise Program, Home Safety, Activity Modification, Education of Plan of Care Patient demonstrates compliance with HEP?: Yes Short Term Goals Goal #1: Pt to increase LUE shoulder abduction to 75 deg. Goal to be met by: 04/14/17 Progress towards goal: Partially Met Goal #2: Pt to be independent with Home exercises. Goal to be met by: 04/14/17 Progress towards goal: Met Goal #3: Pt to increase LUE shoulder flexion to 70 deg. Goal to be met by: 04/14/17 Progress towards goal: Met Goal #4: Pt to increase his strength to 3-/5 in LUE. Goal to be met by: 04/14/17 Progress towards goal: Met Custodial Goals Goal #1: Pt to increase LUE shoulder abduction to 90 deg. Goal to be met by: 06/18/17 Progress towards goal: Progressing Goal #2: Pt to increase independence of self care management to Independent. Goal to be met by: 06/18/17 Progress towards goal: Met Goal #3: Pt to increase LUE shoulder flexion to 90 deg. Goal to be met by: 06/18/17 Progress towards goal: Partially Met Comments: With PROM prior Goal #4: Pt to increase his strength to 4/5/5 in LUE. Goal to be met by: 06/18/17 Progress towards goal: Progressing Plan PLAN OF CARE EXPIRES ON:: 06/18/17 ORDER # VISITS AND/OR THROUGH DATE: 06/18/17 PLAN: Cont tx x 1 wk Frequency: 2 X week Duration: 1 week
--- NOTE | 2017-05-26 10:53 | RS.OTDCSUM ---
Subjective Date of Discharge: 05/25/17 Date of Evaluation: 03/31/17 Number of Visits: 17 Treatment Diagnosis: Tear of Left Rotator cuff, Contusion to Left shoulder Current Level of Function: Pt is now able to drive and use his LUE more for self care management. Pt is independent with his self care at this time. Current Complaints/Gains: Pt's pain has decreased to just when he uses his arm. Pt has little difficulty at this time. Pain Assessment - Pain Description Pain Location: LUE shoulder, posterior deltoid Pain Description: aches, sharp when he reaches Current Pain Intensity: 0 Worst Pain Intensity: 2 Functional Outcome Measures UE Functional Index: 68 - G Codes & Severity Modifier G Codes: G8986 -carry discharge status is 15% disabled. CI level. Source of G Code score: Carry Moving, and Handling is 15% impaired. Observation - Observation Posture: Forward Head Handedness: Right Shoulder ROM: Right WFL's Shoulder Muscle Strength: Right WFL's - Left Shoulder ROM Left Shoulder Flexion: 110 Left Shoulder Extension: 60 Left Shoulder Abduction: 45 Left Shoulder Internal Rotation: 35 Left Shoulder External Rotation: 30 Left Shoulder ROM Limitations: Pain - Left Shoulder Strength Left Shoulder Flexion: 3- Fair- Left Shoulder Extension: 3- Fair- Left Shoulder Abduction: 3- Fair- Left Shoulder Adduction: 3- Fair- Left Shoulder External Rotation: 3- Fair- Left Shoulder Internal Rotation: 3- Fair- Elbow ROM: Bilaterally WFL's Elbow Muscle Strength: Bilaterally WFL's - Left Elbow Strength Left Elbow Extension: 4 Good Left Elbow Flexion: 4 Good Left Forearm Pronation: 4 Good Left Forearm Supination: 4 Good Wrist ROM: Bilaterally WFL's Wrist Muscle Strength: Bilaterally WFL's Palpation Palpation Findings: Tenderness Comments:: some tender points but mild. Sensation Right Lower Extremity: Intact/Normal Left Upper Extremity: Intact/Normal Sensation Description: Within Normal Limits Modalities - Hot Pack/Cryotherapy Treatment: Hot Pack Comments:: Hot pack to LUE shoulder to decrease pain and stiffness and increase AROM. Interventions - Exercise/Activities Exercise/Activities/Manual Therapy: Isometric exercises, 10/2 with hold x 5 secs. Extended PROM to A/AROM L UE in supine position. 3# say bar 10/2, shoulder flexion/abduction/extension. Hold-relax and AROM performed with 45* angle from 120-. Red progressed to green t-band RTC series ex. Pt tolerated 3 + minutes of the overhead pulleys. Ball flexion with BUE x 10 reps along with ball circles. HOME EXERCISE PROGRAM: Written document of Isometric exercises. - Objective Findings Objective Findings:: AROM cont improving - Charges Timed Code Treatment Minutes: 50 Total Treatment Time: 50 Procedures billed for this date of service:: Therex x 2, HP Assessment Assessment: Pt has increased from 65% impaired to 15% impaired. Pt continues with a torn Rotator cuff of LUE and is using his LUE during self care management. Pt met his goal of CI complexity modifier. Rehab Potential: Good Problems/Comments: Pt continues with limited AROM of LUE shoulder flexion, abduction, and mild pain of 2/10 intermittently. Short Term Goals Goal #1: Pt to increase LUE shoulder abduction to 75 deg. Goal to be met by: 04/14/17 Progress towards goal: Partially Met Goal #2: Pt to be independent with Home exercises. Goal to be met by: 04/14/17 Progress towards goal: Met Goal #3: Pt to increase LUE shoulder flexion to 70 deg. Goal to be met by: 04/14/17 Progress towards goal: Met Goal #4: Pt to increase his strength to 3-/5 in LUE. Goal to be met by: 04/14/17 Progress towards goal: Met Manager Medical Affairs Goals Goal #1: Pt to increase LUE shoulder abduction to 90 deg. Goal to be met by: 06/18/17 Progress towards goal: Progressing Goal #2: Pt to increase independence of self care management to Independent. Goal to be met by: 06/18/17 Progress towards goal: Met Goal #3: Pt to increase LUE shoulder flexion to 90 deg. Goal to be met by: 06/18/17 Progress towards goal: Partially Met Goal #4: Pt to increase his strength to 4/5/5 in LUE. Goal to be met by: 06/18/17 Progress towards goal: Progressing Plan Reason for Discharge:: Maximum Potential Met Comments: Pt improved toward his goals and met his overall impairment goal of CI.
== END 2017-06-14 ==
PROVIDERS: ATTEND Orthopaedic Surgery
DX: M19.012 Primary osteoarthritis, left shoulder (principal)